=== PATIENT | male | born 1990 | race Asian ===

== ENCOUNTER 2018-10-24 12:28 | Emergency (ER) | payer OTHER ==
[~2018-10-24] VITALS: Ht 167.6 cm; Wt 70.5 kg
[2018-10-24 15:44] VITALS: BP 130/88
== END 2018-10-24 15:46 | disposition home or self-care (01) ==
LOC: EMS 12:28
DX: R76.11 Nonspecific reaction to tuberculin skin test without active tuberculosis (principal); F17.210 Nicotine dependence, cigarettes, uncomplicated; F14.90 Cocaine use, unspecified, uncomplicated